=== PATIENT | male | born 1995 | race African-American/Black ===

== ENCOUNTER 2022-03-25 14:07 | Inpatient (IN) | payer MEDICAID, SELFPAY ==
[~2022-03-25] VITALS: Ht 193 cm; Wt 92.4 kg
[2022-03-25] MEDS ORDERED: MECL1TAB31 PO (14:15)
[2022-03-25 16:19] LABS: BASO % 0.2 % (0.0-1.0); EOS % 0.2 % (0.0-3.0); HEMATOCRIT 49.7 % (42.0-52.0); HEMOGLOBIN 16.6 g/dl (13.5-17.5); LYMPH # 1.6 10^3/uL (1.5-5.0); LYMPH % 29.4 % (24.0-44.0); MEAN CORPUSCULAR HEMOGLOBIN 30.2 pg (27.0-33.0); MEAN CORPUSCULAR HGB CONC 33.4 g/dl (32.0-36.5); MEAN CORPUSCULAR VOLUME 90.4 fl (80.0-96.0); MONO # 0.4 10^3/uL (0.0-0.8); MONO % 7.6 % (2.0-8.0); NEUTROPHILS # 3.5 10^3/uL (1.5-8.5); NEUTROPHILS % 62.2 % (36.0-66.0); PLATELET COUNT, AUTOMATED 204 10^3/uL (150-450); WHITE BLOOD COUNT 5.6 10^3/uL (4.0-10.0)
[2022-03-25 17:12] LABS: AMPHETAMINES LEVEL URINE NEGATIVE (NEGATIVE); BARBITURATES URINE NEGATIVE (NEGATIVE); BENZODIAZEPINES URINE NEGATIVE (NEGATIVE); CANNABINOIDS URINE NEGATIVE (NEGATIVE); COCAINE METABOLITE URINE NEGATIVE (NEGATIVE); METHADONE URINE NEGATIVE (NEGATIVE); OPIATES URINE NEGATIVE (NEGATIVE); PHENCYCLIDINE URINE NEGATIVE (NEGATIVE)
[2022-03-25] MEDS ORDERED: NS 1,000 ML IV ONE (18:10)
[2022-03-25] MEDS ORDERED: PROHANCE 279.3MG/ML 15ML VIAL As Ordered ONE (19:05)
[2022-03-25] MEDS ORDERED: PROHANCE 279.3MG/ML 5ML VIAL As Ordered ONE (19:06)
[2022-03-25] MEDS ORDERED: methylPREDNISolone 125MG 2ML VIAL IV ONE (20:55)
[2022-03-25 21:01] LABS: ALBUMIN 4.3 GM/DL (3.2-5.2); ALT/SGPT 27 U/L (12-78); BILIRUBIN,DIRECT < 0.1 MG/DL (0.0-0.2); BILIRUBIN,TOTAL 0.5 MG/DL (0.2-1.0); ETHYL ALCOHOL (ETHANOL) < 0.003 % (0.000-0.010); LIPASE 18 U/L (73-393); TOTAL PROTEIN 8.4 GM/DL (6.4-8.2)
[2022-03-25] MEDS ORDERED: METHYLPREDNISOLONE IV ONE (21:25)
[2022-03-25] MEDS ORDERED: NS IV ONE (21:25)
[2022-03-25] MEDS ORDERED: MATE ADAPTER IV ONE (21:25)
[2022-03-25] MEDS ORDERED: HOME MED LIST COMPLETE! XX SCH (21:50)
[2022-03-25 22:45] LABS: RSV AMPLIFICATION NEGATIVE (NEGATIVE)
[2022-03-26 06:48] LABS: HEMATOCRIT 45.4 % (42.0-52.0); HEMOGLOBIN 15.5 g/dl (13.5-17.5); MEAN CORPUSCULAR HEMOGLOBIN 30.8 pg (27.0-33.0); MEAN CORPUSCULAR HGB CONC 34.1 g/dl (32.0-36.5); MEAN CORPUSCULAR VOLUME 90.1 fl (80.0-96.0); PLATELET COUNT, AUTOMATED 189 10^3/uL (150-450); RED BLOOD COUNT 5.04 10^6/uL (4.30-6.10); WHITE BLOOD COUNT 3.9 10^3/uL (4.0-10.0)
[2022-03-26 07:20] LABS: ALT/SGPT 22 U/L (12-78); BILIRUBIN,TOTAL 0.7 MG/DL (0.2-1.0); BLOOD UREA NITROGEN 9 MG/DL (7-18); CALCIUM LEVEL 9.4 MG/DL (8.5-10.1); CARBON DIOXIDE LEVEL 29 MEQ/L (21-32); CHLORIDE LEVEL 105 MEQ/L (98-107); GLOMERULAR FILTRATION RATE > 60.0 (>60); GLUCOSE, FASTING 154 MG/DL (70-100); MAGNESIUM LEVEL 1.9 MG/DL (1.8-2.4); POTASSIUM SERUM 4.4 MEQ/L (3.5-5.1); SODIUM LEVEL 138 MEQ/L (136-145); TOTAL PROTEIN 7.1 GM/DL (6.4-8.2)
[2022-03-26 09:10] VITALS: BP 132/69
[2022-03-26 09:15] VITALS: BP 132/69
[2022-03-26] MEDS: ENOXAPARIN 40MG/0.4ML SYRINGE (J1650 PER 10MG) SC SCH (10:28)
[2022-03-26 12:32] LABS: TOTAL PROTEIN 7.4 GM/DL (6.4-8.2)
[2022-03-26 14:00] VITALS: BP 130/74
[2022-03-26 20:45] VITALS: BP 129/76
[2022-03-26] MEDS ORDERED: methylPREDNISolone 500 MG, VIAL MATE ADAPTER 1 EACH in NS 250 ML IV SCH (21:00)
[2022-03-27] VITALS (7 sets, daily range): BP systolic 126–159; BP diastolic 77–92
[2022-03-27 09:35] LABS: HEMOGLOBIN 15.3 g/dl (13.5-17.5); LYMPH # 0.8 10^3/uL (1.5-5.0); LYMPH % 9.2 % (24.0-44.0); MEAN CORPUSCULAR HEMOGLOBIN 30.9 pg (27.0-33.0); MEAN CORPUSCULAR VOLUME 90.9 fl (80.0-96.0); MONO # 0.3 10^3/uL (0.0-0.8); NEUTROPHILS # 7.3 10^3/uL (1.5-8.5); NEUTROPHILS % 86.2 % (36.0-66.0); PLATELET COUNT, AUTOMATED 197 10^3/uL (150-450); RED BLOOD COUNT 4.95 10^6/uL (4.30-6.10); WHITE BLOOD COUNT 8.5 10^3/uL (4.0-10.0)
[2022-03-27 10:07] LABS: DRVV SCREEN 36.1 SEC
[2022-03-27] MEDS: methylPREDNISolone 1,000 MG, VIAL MATE ADAPTER 1 EACH in NS 250 ML IV SCH (10:26)
[2022-03-27] MEDS: PANTOPRAZOLE 40MG TAB (PROTONIX) PO SCH (10:26)
[2022-03-27 10:27] LABS: BLOOD UREA NITROGEN 9 MG/DL (7-18); CARBON DIOXIDE LEVEL 26 MEQ/L (21-32); CHLORIDE LEVEL 106 MEQ/L (98-107); CREATININE FOR GFR 0.93 MG/DL (0.70-1.30); GLOMERULAR FILTRATION RATE > 60.0 (>60); GLUCOSE, FASTING 135 MG/DL (70-100); POTASSIUM SERUM 4.1 MEQ/L (3.5-5.1); SODIUM LEVEL 140 MEQ/L (136-145)
[2022-03-27 12:11] LABS: HEPATITIS B SURFACE ANTIBODY POSITIVE (POSITIVE); TOTAL 25(OH) VITAMIN D 19.5 NG/ML (30.0-100.0)
[2022-03-27 12:12] LABS: VITAMIN B12 LEVEL 393 PG/ML (247-911)
[2022-03-27 12:14] LABS: VITAMIN B12 LEVEL 417 PG/ML (247-911)
[2022-03-27 12:51] LABS: HEPATITIS C VIRUS ABY INDEX 0.1 INDEX (<0.8)
[2022-03-27 17:21] LABS: CSF TUBE# GLU TUBE 2; CSF TUBE# TP TUBE 2; GLUCOSE CSF 100 MG/DL (40-75); TOTAL PROTEIN,CSF 85 MG/DL (15-45)
[2022-03-27 17:46] LABS: CSF TUBE# CELL CNT TUBE 1
[2022-03-27 17:47] LABS: APPEARANCE, CSF CLEAR (CLEAR); COLOR, CSF COLORLESS (COLORLESS)
[2022-03-28 06:00] VITALS: BP 114/61
[2022-03-28] MEDS: methylPREDNISolone 1,000 MG, VIAL MATE ADAPTER 1 EACH in NS 250 ML IV SCH (08:16)
[2022-03-28] MEDS: PANTOPRAZOLE 40MG TAB (PROTONIX) PO SCH (08:16)
[2022-03-28] MEDS: ENOXAPARIN 40MG/0.4ML SYRINGE (J1650 PER 10MG) SC SCH (09:28)
[2022-03-28 14:00] VITALS: BP 138/73
[2022-03-28 14:57] LABS: ALBUMIN % 63.8 % (55.8-66.1); ALPHA-1-GLOBULIN % 3.2 % (2.9-4.9)
[2022-03-28 14:58] LABS: ALBUMIN 4.72 GM/DL (3.29-5.55); ALPHA-1-GLOBULINS 0.24 GM/DL (0.17-0.41); ALPHA-2-GLOBULINS 0.58 GM/DL (0.42-0.99); ALPHA-2-GLOBULINS % 7.8 % (7.1-11.8); BETA-1-GLOBULINS 0.35 GM/DL (0.28-0.60); BETA-1-GLOBULINS % 4.7 % (4.7-7.2); BETA-2-GLOBULINS 0.34 GM/DL (0.19-0.55); BETA-2-GLOBULINS % 4.6 % (3.2-6.5); GAMMA GLOBULIN % 15.9 % (11.1-18.8); GAMMA GLOBULINS 1.18 GM/DL (0.65-1.58)
[2022-03-28 22:00] VITALS: BP 157/94
[2022-03-29 06:00] VITALS: BP 142/76
[2022-03-29] MEDS: ENOXAPARIN 40MG/0.4ML SYRINGE (J1650 PER 10MG) SC SCH (08:03)
[2022-03-29] MEDS: PANTOPRAZOLE 40MG TAB (PROTONIX) PO SCH (08:03)
[2022-03-29] MEDS: methylPREDNISolone 1,000 MG, VIAL MATE ADAPTER 1 EACH in NS 250 ML IV SCH (08:03)
[2022-03-29 14:00] VITALS: BP 152/84
[2022-03-29 20:02] VITALS: BP 148/85
[2022-03-30 05:30] VITALS: BP 137/78
[2022-03-30] MEDS: PANTOPRAZOLE 40MG TAB (PROTONIX) PO SCH (08:11)
[2022-03-30] MEDS: methylPREDNISolone 1,000 MG, VIAL MATE ADAPTER 1 EACH in NS 250 ML IV SCH (08:11)
[2022-03-30] MEDS: ENOXAPARIN 40MG/0.4ML SYRINGE (J1650 PER 10MG) SC SCH (08:11)
[2022-03-30 14:00] VITALS: BP 152/88
[2022-03-30 20:00] VITALS: BP 154/81
[2022-03-31 05:47] VITALS: BP 145/89
[2022-03-31] MEDS ORDERED: PANT40TA29 PO (07:57)
[2022-03-31] MEDS: PANTOPRAZOLE 40MG TAB (PROTONIX) PO SCH (08:29)
[2022-03-31] MEDS: methylPREDNISolone 1,000 MG, VIAL MATE ADAPTER 1 EACH in NS 250 ML IV SCH (08:29)
[2022-03-31] MEDS: ENOXAPARIN 40MG/0.4ML SYRINGE (J1650 PER 10MG) SC SCH (08:29)
[2022-04-04 12:09] LABS: ANA (HEP2) Positive (.); ANTI DS-DNA AB Negative (Negative); CARDIOLIPIN IGA ANTIBODY 9 APL U/mL (0-11); CARDIOLIPIN IGG ANTIBODY <9 GPL U/mL (0-14); CARDIOLIPIN IGM ANTIBODY <9 MPL U/mL (0-12); HEPATITIS A IgG TOTAL Positive (Negative); HERPES ZOSTER, VARICELLA IgG 135 index (Immune >165); SSA SJOGRENS A <0.2 AI (0.0-0.9); SSB SJOGRENS B <0.2 AI (0.0-0.9); VITAMIN B1 LEVEL WHOLE BLOOD 189.1 nmol/L (66.5-200.0)
== END 2022-03-31 12:30 | disposition home or self-care (01) | DRG 43 ==
LOC: M ED 14:07 → M ED INP 21:25 → ENRESERV 03-26 08:05 → M MS5PR 03-26 09:10
PROVIDERS: ADMIT Family Medicine; ATTEND Internal Medicine Nephrology
PROC: 009U3ZX Drainage of Spinal Canal, Percutaneous Approach, Diagnostic (ICD-10-PCS; principal; 2022-03-27)
DX: G35 Multiple sclerosis (principal); E87.5 Hyperkalemia; F17.210 Nicotine dependence, cigarettes, uncomplicated; R27.0 Ataxia, unspecified; H53.2 Diplopia

== ENCOUNTER → 2024-10-06 | Outpatient (REF) | payer MEDICAID, OTHER ==
[~2024-10-06] MED LIST: MECL-209 PO; PANT40TA29 PO
[2024-10-06 17:59] LABS: BASO % 0.2 % (0.0-1.0); EOS % 0.5 % (0.0-3.0); HEMOGLOBIN 16.9 g/dl (13.5-17.5); LYMPH # 1.7 10^3/uL (1.5-5.0); MEAN CORPUSCULAR HEMOGLOBIN 30.7 pg (27.0-33.0); MEAN CORPUSCULAR HGB CONC 33.8 g/dl (32.0-36.5); MEAN CORPUSCULAR VOLUME 90.9 fl (80.0-96.0); MONO # 0.7 10^3/uL (0.0-0.8); MONO % 11.1 % (2.0-8.0); NEUTROPHILS # 3.5 10^3/uL (1.5-8.5); PLATELET COUNT, AUTOMATED 224 10^3/uL (150-450)
[2024-10-06 18:25] LABS: TOTAL 25(OH) VITAMIN D 11.5 NG/ML (20.0-100.0)
[2024-10-06 18:26] LABS: ALBUMIN 4.3 G/DL (3.2-5.2); ALKALINE PHOSPHATASE 66 U/L (40-129); ALT/SGPT 19 U/L (7.0-40); AST/SGOT 12 U/L (<34); BILIRUBIN,TOTAL 0.5 MG/DL (0.3-1.2); BLOOD UREA NITROGEN 17 MG/DL (9-23); CALCIUM LEVEL 10.3 MG/DL (8.5-10.1); CARBON DIOXIDE LEVEL 31 MMOL/L (20-31); CHLORIDE LEVEL 106 MMOL/L (98-107); CHOLESTEROL LEVEL 259 MG/DL (<200); CHOLESTEROL RISK RATIO 4.14 (<5); CREATININE FOR GFR 1.12 MG/DL (0.70-1.30); GLOMERULAR FILTRATION RATE > 60.0 (>60); GLUCOSE, FASTING 73 MG/DL (60-100); HDL CHOLESTEROL 62.5 MG/DL (>40); LDL CHOLESTEROL 177.1 MG/DL (<100); NON-HDL-C 196.5 MG/DL; POTASSIUM SERUM 4.4 MMOL/L (3.5-5.1); SODIUM LEVEL 142 MMOL/L (136-145); TOTAL PROTEIN 7.5 G/DL (5.7-8.2); TRIGLYCERIDES LEVEL 97 MG/DL (<150); VITAMIN B12 LEVEL 432 PG/ML (211-911)
== END ==
LOC: M SFHCLERA 15:01
DX: Z13.220 Encounter for screening for lipoid disorders (principal); G35 Multiple sclerosis

== ENCOUNTER → 2025-04-16 | Outpatient (REF) | payer MEDICAID, OTHER ==
[2025-04-16 20:06] LABS: GC DNA AMPLIFICATION NEGATIVE (NEGATIVE)
== END ==
LOC: M SFHCLERA 17:17
DX: Z20.2 Contact with and (suspected) exposure to infections with a predominantly sexual mode of transmission (principal)